=== PATIENT | male | born 1975 | race Caucasian/White ===

== ENCOUNTER → 2019-05-01 | Outpatient (CLI) | payer BC ==
[2019-05-01 07:56] LABS: Basophils # (A) 0.1 k/uL (0-0.2); Basophils % (A) 1 %; Eosinophils # (A) 0.1 k/uL (0-0.7); Eosinophils % (A) 2 %; HCT 44.9 % (39.0-53.0); HGB 14.5 gm/dL (13.0-17.5); Lymphocytes # (A) 2.1 k/uL (1.0-4.8); Lymphocytes % (A) 35 %; MCH 31.3 pg (25.0-35.0); MCHC 32.3 g/dL (31.0-37.0); MCV 96.7 fL (80.0-100.0); Mean Platelet Volume 7.4; Monocytes # (A) 0.3 k/uL (0-1.0); Monocytes % (A) 5 %; Neutrophils # (A) 3.4 k/uL (1.3-7.7); Neutrophils % (A) 55 %; Platelet Count 203 k/uL (150-450); RBC 4.65 m/uL (4.30-5.90); RDW 12.6 % (11.5-15.5); WBC 6.1 k/uL (3.8-10.6)
--- NOTE | 2019-05-01 10:47 | XR ---
EXAMINATION TYPE: XR soft tissue neck DATE OF EXAM: 05/01/2019 COMPARISON: NONE HISTORY: Feeling of something stuck in mid throat TECHNIQUE: AP and lateral views of the neck soft tissues were obtained. FINDINGS: Soft tissues appear within normal limits. Adenoid and palatine tonsils appear normal in size. Epiglot tis is normal in size. No significant degenerative changes in the cervical spine. Visualized upper nan ngs are clear. No radiopaque foreign body. IMPRESSION: Normal appearance of the neck soft tissues.
[2019-05-01 11:01] LABS: African American GFR (CKD) 94.1 (60.0-200.0); Albumin 4.3 g/dL (3.80-4.90); Albumin/Globulin Ratio 2.39 (1.60-3.17); Anion Gap 9.7 mmol/L (4.00-12.00); BUN/Creat Ratio 12.73 Ratio (12.00-20.00); Carbon Dioxide 25.3 mmol/L (21.6-31.8); Chol/HDL Ratio 3.29; Globulin 1.8 g/dL (1.6-3.3); LDL Cholesterol,Calculated 110.2 mg/dL (0.0-131.0); Non-African American GFR(CKD) 81.2 (60.0-200.0); Potassium 4.3 mmol/L (3.5-5.5); Total Bilirubin 0.8 mg/dL (0.2-1.2); Total Protein 6.1 g/dL (6.2-8.2); VLDL Calculation 17.8 mg/dL (5.00-40.00)
== END | disposition home or self-care (01) ==
LOC: LABWHC1 07:06
PROVIDERS: ATTEND Family Medicine
DX: R09.89 Other specified symptoms and signs involving the circulatory and respiratory systems (principal); T17.308A Unspecified foreign body in larynx causing other injury, initial encounter; J30.2 Other seasonal allergic rhinitis; R35.0 Frequency of micturition; Z13.220 Encounter for screening for lipoid disorders; Z12.5 Encounter for screening for malignant neoplasm of prostate
CPT/HCPCS: 36415; 70360; 80053; 80061; 84153; 84443; 85025

== ENCOUNTER → 2020-11-24 | Outpatient (CLI) | payer BC ==
[2020-11-24 15:31] LABS: Basophils # (A) 0.06 X 10*3/uL (0.00-0.10); Basophils % (A) 1.2 %; Eosinophils # (A) 0.11 X 10*3/uL (0.04-0.35); Eosinophils % (A) 2.2 %; Lymphocytes # (A) 1.95 X 10*3/uL (0.90-5.00); Lymphocytes % (A) 38.5 %; MCH 32.8 pg (27.0-32.0); MCHC 33.3 g/dL (32.0-37.0); MCV 98.4 fL (80.0-97.0); Mean Platelet Volume 11.4 fL (9.5-12.2); Monocytes # (A) 0.46 X 10*3/uL (0.20-1.00); Monocytes % (A) 9.1 %; Neutrophils # (A) 2.46 X 10*3/uL (1.80-7.70); Neutrophils % (A) 48.6 %; Platelet Count 212 X 10*3/uL (140-440); RBC 4.27 X 10*6/uL (4.40-5.60); RDW 12.9 % (11.5-14.5); WBC 5.06 X 10*3/uL (4.50-10.00)
[2020-11-24 15:55] LABS: African American GFR (CKD) 104.1 (60.0-200.0); Albumin 4.6 g/dL (3.80-4.90); Albumin/Globulin Ratio 2.56 (1.60-3.17); Anion Gap 6.2 mmol/L (4.00-12.00); Calcium 9.9 mg/dL (8.7-10.3); Carbon Dioxide 28.8 mmol/L (21.6-31.8); Chol/HDL Ratio 3.5; Globulin 1.8 g/dL (1.6-3.3); LDL Cholesterol,Calculated 117.4 mg/dL (0.0-131.0); Non-African American GFR(CKD) 89.9 (60.0-200.0); Potassium 4.9 mmol/L (3.5-5.5); Total Protein 6.4 g/dL (6.2-8.2); VLDL Calculation 22.6 mg/dL (5.00-40.00)
[2020-11-24 17:08] LABS: PSA Annual Screen 0.7 ng/mL (0.0-4.0)
== END | disposition home or self-care (01) ==
LOC: LABWHC1 07:23
PROVIDERS: ATTEND Family Medicine
DX: Z00.00 Encounter for general adult medical examination without abnormal findings (principal)
CPT/HCPCS: 80061; 80053; 84443; 85025; 36415; G0103

== ENCOUNTER 2021-03-27 17:29 | Emergency (ER) | payer BC, MEDICAID ==
[2021-03-27 17:48] VITALS: BP 116/67; PULSE 57; RESP 18; TEMP 98
[2021-03-27] MEDS ORDERED: KETOROLAC 15 MG/ML 1 ML VIAL IM STA (18:16)
--- NOTE | 2021-03-27 18:20 | ED ---
General Adult HPI - General Chief complaint: Extremity Injury, Lower Stated complaint: lt leg injury Time Seen by Provider: 03/27/21 17:49 Source: patient, EMS Mode of arrival: EMS Limitations: no limitations - History of Present Illness Initial comments: 45-year-old male presents to the emergency room for a chief complaint of left leg injury. Patient reports that he was playing softball and he took a line drive to the left bush. Today he played the rest of his game. He went home and after resting the pain in his leg worsen. States it is now painful to walk on. Patient did take Tylenol prior to arrival. Patient has no other complaints at this time including shortness of breath, chest pain, abdominal pain, nausea or vomiting, headache, or visual changes. - Related Data Previous Rx's Medication Instructions Recorded Acetaminophen with Codeine 1 each PO Q4H PRN #20 tab 04/12/15 [Tylenol w/codeine #3] Naproxen [Naprosyn] 500 mg PO Q12HR #30 tab 04/12/15 Allergies Allergy/AdvReac Type Severity Reaction Status Date / Time atropine sulfate AdvReac Nausea & Verified 04/12/15 14:29 [From ] Vomiting erythromycin lactobionate AdvReac Rash/Hives Verified 04/12/15 14:29 [From Erythrocin] hyoscyamine sulfate AdvReac Nausea & Verified 04/12/15 14:29 [From ] Vomiting Penicillins AdvReac Rash/Hives Verified 04/12/15 14:29 phenobarbital [From ] AdvReac Nausea & Verified 04/12/15 14:29 Vomiting scopolamine hydrobromide AdvReac Nausea & Verified 04/12/15 14:29 [From ] Vomiting Review of Systems ROS Statement: Those systems with pertinent positive or pertinent negative responses have been documented in the HPI. ROS Other: All systems not noted in ROS Statement are negative. Past Medical History Past Medical History: No Reported History History of Any Multi-Drug Resistant Organisms: None Reported Additional Past Surgical History / Comment(s): left wrist Past Psychological History: No Psychological Hx Reported Past Alcohol Use History: Rare Past Drug Use History: None Reported General Exam Limitations: no limitations General appearance: alert, in no apparent distress Head exam: Present: atraumatic, normocephalic, normal inspection Eye exam: Present: normal appearance, PERRL, EOMI. Absent: scleral icterus, conjunctival injection, periorbital swelling ENT exam: Present: normal exam, mucous membranes moist Neck exam: Present: normal inspection, full ROM Respiratory exam: Present: normal lung sounds bilaterally. Absent: respiratory distress, wheezes, rales, rhonchi, stridor Cardiovascular Exam: Present: regular rate, normal rhythm, normal heart sounds. Absent: systolic murmur, diastolic murmur, rubs, gallop, clicks Extremities exam: Present: full ROM (Full range of motion of the left leg including the left knee and ankle joints.), tenderness (Tenderness to the mid lower leg left extremity.), normal capillary refill (Capillary refill less than 2 seconds, DP pulse 2+ left lower extremity), other (Contusion with ecchymosis noted to the mid tib-fib of the left lower extremity). Absent: calf tenderness Course Vital Signs 03/27/21 17:44 Temperature 98.0 F Pulse Rate 57 L Respiratory 18 Rate Blood Pressure 116/67 O2 Sat by Pulse 100 Oximetry Medical Decision Making - Medical Decision Making Vitals are stable. Patient is well-appearing. Patient does have 10 cm x 10 cm area of ecchymosis over the medial anterior mid tib-fib area on the left lower extremity. Neurovascular status intact. Compartment are soft. X-ray of the left tib-fib showed no acute osseous abnormality. 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 At this time discussed rice therapy and Motrin and Tylenol for pain. Discussed following up with primary care. If patient has any worsening symptoms he will return to the emergency room. Disposition Clinical Impression: Contusion, Leg pain, left Disposition: HOME SELF-CARE Condition: Good Instructions (If sedation given, give patient instructions): R.I.C.E. Treatment (ED) Additional Instructions: Please take Motrin and Tylenol for pain. Rest ice and elevate the left leg. Follow-up with your doctor in one to 2 days for a recheck. Return to the emergency room for any worsening symptoms. Is patient prescribed a controlled substance at d/c from ED?: No Referrals: Javier Ga MD [Primary Care Provider] - 1-2 days Time of Disposition: 19:57
--- NOTE | 2021-03-27 19:20 | XR ---
RESULT: HISTORY: pain TECHNIQUE: 2 views of the left tibia-fibula were obtained. COMPARISON: None. FINDINGS: There is no acute fracture or dislocation. Well-corticated fragmentation of tibial tuberosity, in efraín ping with prior Sulma-Schlatter's disease noted. Otherwise the visualized joint spaces are preserved . IMPRESSION: No acute osseous abnormality. Chronic changes as above.
== END 2021-03-27 20:01 | disposition home or self-care (01) ==
LOC: EC 17:29
DX: S80.12XA Contusion of left lower leg, initial encounter (principal); Z88.0 Allergy status to penicillin; Y93.64 Activity, baseball
CPT/HCPCS: 73590; 99283; 96372; J1885